=== PATIENT | female | born 1985 ===

== ENCOUNTER 2017-09-11 04:20 | Emergency (ER) | payer MEDICAID ==
[2017-09-11 04:39] VITALS: TEMP 98.3; O2SAT 99
[2017-09-11] MEDS ORDERED: Aluminum Hydroxide/Magnesium Hydroxide Susp (30 mL) PO STA (04:53)
[2017-09-11 05:16] LABS: BASO # 0.1 K/uL (0.0-0.2); BASO % 0.9 % (0.0-2.0); EOS # 0.7 K/uL (0.0-0.7); EOS % 9.2 % (0.0-4.0); HEMOGLOBIN 12.8 g/dL (11.0-16.0); LYMPH # 2.1 K/uL (1.0-4.3); LYMPH % 27.9 % (20.0-40.0); MEAN CELL VOLUME 90.6 fL (81.0-99.0); MEAN CORPUSCULAR HGB CONC 34.2 g/dL (33.0-37.0); MEAN PLATELET VOLUME 7.3 fL (7.2-11.7); MONO # 0.5 K/uL (0.0-0.8); MONO % 6.6 % (0.0-10.0); NEUT # 4.2 K/uL (1.8-7.0); NEUT % 55.4 % (50.0-75.0); NRBC % 0.1 % (0.0-2.0); RBC 4.13 Mil/uL (3.80-5.20); RED CELL DISTRIBUTION WIDTH 13.3 % (11.5-14.5); WHITE BLOOD COUNT 7.6 K/uL (4.8-10.8)
[2017-09-11] MEDS ORDERED: Aluminum Hydroxide/Magnesium Hydroxide Susp (30 mL) ONE (05:16)
[2017-09-11 05:28] LABS: ALB/GLOB RATIO 1.1 (1.0-2.1); ALBUMIN 3.9 g/dL (3.5-5.0); ALT/SGPT 9 U/L (9-52); AST/SGOT 17 U/L (14-36); BLOOD UREA NITROGEN 11 mg/dL (7-17); CALCIUM 8.7 mg/dl (8.6-10.4); GFR AFRICAN-AMERICAN > 60; GFR NON-AFRICAN AMERICAN > 60; LIPASE 141 U/L (23-300)
[2017-09-11 05:31] LABS: SQUAMOUS EPITHIAL 16 /hpf (0-5); URINE BILIRUBIN NEGATIVE (NEGATIVE); URINE BLOOD NEGATIVE (NEGATIVE); URINE CLARITY Hazy (Clear); URINE COLOR Yellow (YELLOW); URINE GLUCOSE (UA) NORMAL (Normal); URINE LEUKOCYTE ESTERASE TRACE Leu/uL (Negative); URINE PROTEIN NEGATIVE (NEGATIVE); URINE UROBILINOGEN NORMAL mg/dL (0.2-1.0)
--- NOTE | 2017-09-11 06:02 | C.PDOC ---
History Of Present Illness 32 year old female presents to the emergency department with complaints of epigastric pain since this morning prior to arrival. Patient presents with a history of similar pain in the past, stating that it usually occurs after eating in the afternoon. Patient denies vomiting, but complains of nausea. Patient also reports that she was diagnosed with H. pylori two months ago for which she completed treatment. She denies recent travel, fever, bloody stools . Time Seen by Provider: 09/11/17 04:39 Chief Complaint (Nursing): Abdominal Pain History Per: Patient History/Exam Limitations: no limitations Onset/Duration Of Symptoms: Hrs Current Symptoms Are (Timing): Still Present Location Of Pain/Discomfort: Epigastric Quality Of Discomfort: "Pain" Associated Symptoms: Nausea. denies: Vomiting Recent travel outside of the [place]: No Past Medical History Reviewed: Historical Data, Nursing Documentation, Vital Signs Vital Signs: Last Vital Signs Temp 98.3 F 09/11/17 04:28 Pulse 70 09/11/17 06:10 Resp 14 09/11/17 06:10 BP 110/70 09/11/17 06:10 Pulse Ox 99 09/11/17 06:38 - Medical History PMH: Hypothyroidism, Migraine Surgical History: No Surg Hx Family History: States: No Known Family Hx - Social History Hx Tobacco Use: No Hx Alcohol Use: No Hx Substance Use: No - Immunization History Hx Tetanus Toxoid Vaccination: No Hx Influenza Vaccination: No Hx Pneumococcal Vaccination: No Review Of Systems Constitutional: Negative for: Fever Gastrointestinal: Positive for: Nausea, Abdominal Pain. Negative for: Vomiting , Diarrhea Physical Exam - Physical Exam Appears: Non-toxic, No Acute Distress Eye(s): bilateral: Normal Inspection, PERRL Cardiovascular: Rhythm Regular Gastrointestinal/Abdominal: Soft, Tenderness (to the epigastric region), No Distention, No Guarding, No Rebound Back: No CVA Tenderness Neurological/Psych: Oriented x3 ED Course And Treatment - Laboratory Results Result Diagrams: 09/11/17 05:13 09/11/17 05:13 O2 Sat by Pulse Oximetry: 99 (RA) Pulse Ox Interpretation: Normal Progress Note: Plan: CMP. Lipase. CBC. Maalox 30ml PO. Protonix 40mg IVP. Zofran 4mg IVP. HCG. Urinalysis. Patient's lab resulted normal, patient states she feels better after receiving pain medications in the ED and with stable vitals. will d/c on PO pepcid and PMD f/u. Return precautions were discussed Reassessment Condition: Improved Disposition Counseled Patient/Family Regarding: Diagnosis, Need For Followup, Rx Given - Disposition Referrals: Dottie Bose MD [Medical Doctor] - Disposition: HOME/ ROUTINE Disposition Time: 06:00 Condition: STABLE Additional Instructions: Take meds as prescribed Avoid greasy, fried or spicy foods Follow up with PMD Return to ER if worse Prescriptions: Famotidine [Pepcid] 20 mg PO DAILY #20 tab Instructions: Gastritis Forms: [employer] (Luxembourgish) Print Language: DOMINICAN - Clinical Impression Clinical Impression: Gastritis - 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 - Scribe Statement The provider has reviewed the documentation as recorded by the Scribe (Emmanuel Novak) All medical record entries made by the Scribe were at my direction and personally dictated by me. I have reviewed the chart and agree that the record accurately reflects my personal performance of the history, physical exam, medical decision making, and the department course for this patient. I have also personally directed, reviewed, and agree with the discharge instructions and disposition.
[2017-09-11 06:11] VITALS: BP 110/70; PULSE 70; RESP 14
== END 2017-09-11 06:11 | disposition home or self-care (01) ==
LOC: C.ER 04:20
DX: K29.70 Gastritis, unspecified, without bleeding (principal)
CPT/HCPCS: 80053; 81001; 83690; 84703; 85025; 96374; 96375; 99283; C9113; J2405

== ENCOUNTER 2018-03-11 10:57 | Emergency (ER) | payer MEDICAID ==
[2018-03-11 11:23] VITALS: RESP 18; TEMP 98.4; O2SAT 100
--- NOTE | 2018-03-11 11:47 | C.PDOC ---
History Of Present Illness 33 year old female with a history of migraines and SHx for Pterygium (performed 8 months ago in [place], left eye) presents to the ED for evaluation of dizziness, blurred vision, nausea, and headache associated with 1 episode of vomiting that began 7am today. Patient reports she woke up with no symptoms, went to work at 7am, patient was standing, felt dizzy, sat down, turned the computer screen on and had left eye blurred vision which has since resolved as has dizziness. She notes the headaches are not similar to migraine headaches. Denies fever, neck stiffness, numbness, tingling, weakness, slurred speech. Time Seen by Provider: 03/11/18 11:32 Chief Complaint (Nursing): Headache History Per: Patient History/Exam Limitations: no limitations Onset/Duration Of Symptoms: Hrs Current Symptoms Are (Timing): Still Present Past Medical History Reviewed: Historical Data, Nursing Documentation, Vital Signs Vital Signs: Last Vital Signs Temp 98.4 F 03/11/18 11:18 Pulse 81 03/11/18 11:18 Resp 18 03/11/18 11:18 BP 125/80 03/11/18 11:18 Pulse Ox 100 03/11/18 11:18 - Medical History PMH: Hypothyroidism, Migraine Family History: States: Unknown Family Hx - Social History Hx Tobacco Use: No Hx Alcohol Use: No Hx Substance Use: No - Immunization History Hx Tetanus Toxoid Vaccination: No Hx Influenza Vaccination: No Hx Pneumococcal Vaccination: No Review Of Systems Constitutional: Negative for: Fever, Chills Eyes: Positive for: Vision Change (blurried vision, resolved) Cardiovascular: Negative for: Chest Pain Gastrointestinal: Positive for: Nausea, Vomiting. Negative for: Abdominal Pain, Diarrhea Skin: Negative for: Rash Neurological: Positive for: Headache. Negative for: Weakness, Numbness, Altered Mental Status Physical Exam - Physical Exam Appears: Non-toxic, No Acute Distress Skin: Warm, Dry Head: Atraumatic, Normacephalic Eye(s): bilateral: Normal Inspection, PERRL, EOMI, Other (no nystagmus.) Ear(s): Bilateral: Normal Neck: Supple Cardiovascular: Rhythm Regular Respiratory: No Decreased Breath Sounds, No Wheezing Gastrointestinal/Abdominal: Bowel Sounds, Soft, No Tenderness Extremity: Normal ROM, No Tenderness, No Swelling Neurological/Psych: Oriented x3, Normal Speech, Normal Cognition, Normal Cranial Nerves, No Cerebellar Signs, Normal Motor, Normal Sensation (finger nose normal, no pronator drift, pedro normal) ED Course And Treatment - Laboratory Results Urine POC: Negative O2 Sat by Pulse Oximetry: 100 (RA) Pulse Ox Interpretation: Normal - Other Rad CT Head X-Ray: Viewed By Me, Read By Radiologist Interpretation: FINDINGS: HEMORRHAGE: No intracranial hemorrhage. BRAIN: No mass effect or edema. No atrophy or chronic microvascular ischemic changes. VENTRICLES: No hydrocephalus. CALVARIUM: Unremarkable. PARANASAL SINUSES: Unremarkable as visualized. No significant inflammatory changes. MASTOID AIR CELLS: Unremarkable as visualized. No inflammatory changes. OTHER FINDINGS: None. IMPRESSION: No acute intracranial pathology identified. Medical Decision Making Medical Decision Making: Plan: -CT Head without contrast -Glucose POC [address] neg,. pt reports headache resolved and vision has been back to normal since arrival in ed with va each eye and bilateral 20/30. will refer pt to Dr Tsai, eye and neurology Disposition Counseled Patient/Family Regarding: Studies Performed, Diagnosis, Need For Followup, Rx Given - Disposition Referrals: Clif Tsai Jr., MD [Medical Doctor] - Markus Parks MD [Staff Provider] - Michael Hidalgo MD [Staff Provider] - Disposition: HOME/ ROUTINE Disposition Time: 14:28 Condition: IMPROVED Additional Instructions: Redd un seguimiento del seguimiento con el Dr. Tsai, el Dr. Parks (oculista) y el Dr. Hidalgo (neurlogo) en los prximos 1-2 ivy. Regrese a la daisha de emergencias para jorge si hay simotmos peores Please follow up with Dr Tsai, Dr Parks (eye doctor) and Dr Hidalgo (neurologist) in the next 1-2 days. Return to ER for any worse symotms. 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 - Scribe Statement The provider has reviewed the documentation as recorded by the Scribe (Mabel Delaney) All medical record entries made by the Scribe were at my direction and personally dictated by me. I have reviewed the chart and agree that the record accurately reflects my personal performance of the history, physical exam, medical decision making, and the department course for this patient. I have also personally directed, reviewed, and agree with the discharge instructions and disposition.
--- NOTE | 2018-03-11 13:18 | CT ---
Date of service: 03/11/2018 PROCEDURE: CT HEAD WITHOUT CONTRAST. HISTORY: bitemporal husain with left eye blurry vision COMPARISON: Noncontrast head CT performed 02/23/16 TECHNIQUE: Axial computed tomography images were obtained through the head/brain without intravenous contrast. Radiation dose: Total exam DLP = 1039.53 mGy-cm. This CT exam was performed using one or more of the following dose reduction techniques: Automated exposure control, adjustment of the mA and/or kV according to patient size, and/or use of iterative reconstruction technique. FINDINGS: HEMORRHAGE: No intracranial hemorrhage. BRAIN: No mass effect or edema. No atrophy or chronic microvascular ischemic changes. VENTRICLES: No hydrocephalus. CALVARIUM: Unremarkable. PARANASAL SINUSES: Unremarkable as visualized. No significant inflammatory changes. MASTOID AIR CELLS: Unremarkable as visualized. No inflammatory changes. OTHER FINDINGS: None. IMPRESSION: No acute intracranial pathology identified.
[2018-03-11 14:43] VITALS: BP 113/74; PULSE 78
== END 2018-03-11 14:43 | disposition home or self-care (01) ==
LOC: C.ER 10:57
DX: R51 Headache (principal)
CPT/HCPCS: 70450; 82948; 96374; 99285; J2765